=== PATIENT | male | born 1960 | race Caucasian/White ===

== ENCOUNTER 2025-03-31 09:28 | Inpatient (IN) ==
--- NOTE | 2025-03-31 09:47 | Emergency Department Note ---
Impression & Plan Precordial chest pain, Elevated liver enzymes, Jaundice, Anemia, Suicidal ideation ED Provider Note NAME: WILL BARFIELD AGE: 64 SEX: M : 1960 ARRIVES VIA: Walk-In INFORMANT: [Patient] ED PROVIDER(S): [Oliver Sepulveda MD] CHIEF COMPLAINT: Chest pain HISTORY OF PRESENT ILLNESS: The patient is a 64-year-old male who presents to the ER with 1 hour of left chest pain. The pain does not radiate and came on while he was driving. He feels maybe a bit hot/sweaty with the pain but there has been no nausea, no pleuritic discomfort however, he does feel mildly short of breath. The patient has no diagnosed coronary disease. He states that he has not had recent travel, he has never had a PE or DVT. The patient did have pain similar to today over the last few months, it would come and go randomly and sometimes, he felt it into his neck. During my evaluation, the patient became tearful, he admitted that in addition to his chest pain today, he has been feeling suicidal for weeks. He is not sure why, it may be financial stress. The patient states that he has thoughts of harming himself daily and, has thought through multiple plans. He has never been hospitalized for depression. He is not on antidepressive medications. PMHx/PSHx/Social Hx: See Below PHYSICAL EXAM: GENERAL: Patient is in mild distress, tearful. HEENT: No acute trauma, normocephalic atraumatic, mucous membranes moist, no nasal congestion. NECK: No stridor, no adenopathy, no meningismus, trachea is midline. LUNGS: Clear to auscultation bilaterally, no wheeze, no rhonchi, breath sounds equal. HEART: Without murmurs gallops or rubs, regular rate and rhythm. Chest: Nontender chest wall. ABDOMEN: Soft, nontender, no peritonitis. EXTREMITIES: No cyanosis, full range of motion of all the joints without pain or difficulty. NEUROLOGIC: Oriented x 3, no acute motor or sensory deficits, no focal weakness. SKIN: Moderate jaundice, no diaphoresis. DIFFERENTIAL DIAGNOSIS: Musculoskeletal pain, PE, aortic dissection, anxiety, TX, among others. EMERGENCY DEPARTMENT PROCEDURES: MEDICAL DECISION MAKING: There is a mild leukocytosis, looking back at recent testing from [facility], his white count has been running a bit high lately. The patient was anemic however, this is a baseline finding looking back at previous testing. Platelet count was somewhat low, also a baseline finding. There was no coagulopathy. No renal failure or significant electrolyte abnormality. Bilirubin was high at 9.7, he has been running a high bilirubin looking back at previous testing. Patient has known liver disease. He is always jaundiced. There was no pancreatitis. The TSH was slightly high however, the T4 was normal. ECG showed a sinus rhythm, no ischemia. Cardiac enzyme testing x 2 was not consistent with acute cardiac injury. Chest x-ray did not show mediastinal widening, pneumonia or pneumothorax. Urinalysis did not show findings of infection. Urine tox was negative. Aspirin, Tylenol and alcohol levels were undetectable. COVID test was negative. The patient's cardiac workup is unrevealing. He has chronic laboratory findings noted today, he was felt medically clear. The patient admits to feeling suicidal. He has thought through several plans. I did have the patient seen by psychiatry case management. Given the circumstances, a 302 petition was initiated. The appropriate paperwork was completed and signed. Patient was seen by our psychiatry services, 3 S. He has been admitted to their floor involuntarily. During the patient's stay, he was cooperative, no behavioral issues. Patient did receive a 500 cc IV saline bolus during his ER stay. Prior/Outside records/notes reviewed: None ECG per my interpretation: Indication was chest pain. The ECG shows a sinus rhythm with a PAC. The rate is 71. There is no ST elevation, no PVCs. The QTc was 449. Continuous Cardiac Monitoring per my interpretation: An order was placed for continuous cardiac monitoring. The monitor shows a rate of 76 with normal sinus rhythm. Imaging/x-ray results per my interpretation: Chest x-ray does not show free air, pneumonia or mediastinal widening. Chronic Medical/Social conditions affecting care: Chronic jaundice secondary to liver disease. Care/Management discussed with: Psychiatry case management Level of care consideration(s): After review of the information above and other included data: --I believe the patient requires escalation of care to admission DISPOSITION: Admission involuntarily to psychiatry, 3 S. Past Med/Surg History Problem List (Updated 03/31/25 @ 18:20 by Oliver Sepulveda MD) Suicidal ideation (Acute) Anemia (Acute) Jaundice (Acute) Elevated liver enzymes (Acute) Precordial chest pain (Acute) Medical History Jaundice Social History Smoking Status: Former smoker Preferred Language: Korean Feels Safe at Home: No Gender Identity: Male Allergies Allergies Allergy/AdvReac Type Severity Reaction Status Date / Time No Known Allergies Allergy Unverified 03/31/25 13:44 Home Meds Home Medications Medication Instructions Recorded Confirmed allopurinol 300 mg tablet 150 mg PO QAM 03/31/25 03/31/25 Results & Data (ED) Vital Signs Vital Signs - 24 hr 03/31/25 09:28 03/31/25 09:53 03/31/25 10:13 Temperature 36.6 C Temperature Source Temporal Artery Scan Pulse Rate 79 60 Pulse Rate [Finger] Pulse Rate from SpO2 Sensor Respiratory Rate 18 Respiratory Effort / Characteristics Non-Labored Spontaneous Respiratory Depth Normal Blood Pressure 171/80 H Blood Pressure [Right Arm] Blood Pressure Mean 110 Blood Pressure Mean [Right Arm] Pulse Oximetry 98 Oxygen Delivery Method Room Air Sepsis Recent Fever Within 48 Hours No Sepsis New/Unexplained Change in Mental Status N/A Sepsis Action Taken by Nursing No Action Required 03/31/25 11:00 03/31/25 11:30 03/31/25 11:54 Temperature Temperature Source Pulse Rate 62 61 59 L Pulse Rate [Finger] Pulse Rate from SpO2 Sensor 62 59 L Respiratory Rate 21 21 18 Respiratory Effort / Characteristics Respiratory Depth Blood Pressure 122/101 H 129/55 L Blood Pressure [Right Arm] Blood Pressure Mean 108 95 Blood Pressure Mean [Right Arm] Pulse Oximetry 99 100 99 Oxygen Delivery Method Room Air Room Air Room Air Sepsis Recent Fever Within 48 Hours Sepsis New/Unexplained Change in Mental Status Sepsis Action Taken by Nursing 03/31/25 12:00 03/31/25 15:20 03/31/25 17:13 Temperature Temperature Source Pulse Rate Pulse Rate [Finger] 67 Pulse Rate from SpO2 Sensor Respiratory Rate 18 Respiratory Effort / Characteristics Respiratory Depth Blood Pressure 109/46 L Blood Pressure [Right Arm] 119/64 Blood Pressure Mean 69 Blood Pressure Mean [Right Arm] 82 Pulse Oximetry 98 Oxygen Delivery Method Room Air Room Air Sepsis Recent Fever Within 48 Hours Sepsis New/Unexplained Change in Mental Status Sepsis Action Taken by [facility] Medications Current Medication List: was personally reviewed by me Laboratory Data Attestation: I reviewed the patient's lab results. 03/31/25 09:41 03/31/25 09:41 Lab Results 03/31/25 03/31/25 03/31/25 Range/Units 09:41 10:13 11:10 WBC 12.52 H (4.8-10.8) K/ul RBC 3.12 L (4.70-6.10) M/uL Hgb 10.3 L (14.0-18.0) g/dl Hct 29.4 L (42.0-52.0) % MCV 94.2 (80.0-100.0) fL MCH 33.0 (25.0-34.0) pg MCHC 35.0 (32.0-36.0) g/dL RDW Std Deviation 62.8 H (36.4-46.3) fL RDW Coeff of [place] 19.1 H (11.5-14.5) % Plt Count 119 L (130-400) K/uL MPV 10.5 (9.4-12.4) fL Immature Gran % (Auto) 0.7 % Neut % (Auto) 76.9 % Lymph % (Auto) 14.2 % [place] % (Auto) 6.2 % Eos % (Auto) 1.4 % Baso % (Auto) 0.6 % Neut # (Auto) 9.63 H (1.40-6.50) K/uL Lymph # (Auto) 1.78 (1.20-3.40) K/uL [place] # (Auto) 0.77 H (0.11-0.59) K/uL Eos # (Auto) 0.18 (0.00-0.50) K/uL Baso # (Auto) 0.07 (0.00-0.20) K/uL Immature Gran # (Auto) 0.09 (0.01-0.20) K/uL PT 11.9 (9.0-12.0) Seconds INR 1.1 (0.9-1.1) APTT 26 (21-31) Seconds PTT Ratio 1.0 Sodium 138 (136-145) mmol/L Potassium 4.2 (3.5-5.1) mmol/L Chloride 103 (98-107) mmol/L Carbon Dioxide 27 (21-32) mmol/L Anion Gap 8 (3-11) BUN 22 (6-23) mg/dl Creatinine 1.29 (0.6-1.4) mg/dl Est Cr Clr Drug Dosing Not Reportable eGFR 61.15 BUN/Creatinine Ratio 17.1 (10-20) Glucose 129 H (70-99(Fasting)) mg/dl Calcium 9.7 (8.6-10.3) mg/dl Magnesium 2.0 (1.7-2.4) mg/dl Total Bilirubin 9.7 H (0.2-1.0) mg/dl AST 22 (13-39) U/L ALT 13 (7-52) U/L Alkaline Phosphatase 61 (34-104) U/L Troponin I High Sens 6.1 (0-20) pg/ml Total Protein 7.7 (6.0-8.3) gm/dl Albumin 4.6 (3.4-5.0) gm/dl Globulin 3.1 (2.5-4.0) gm/dl Albumin/Globulin Ratio 1.5 (0.9-2) Lipase 39 (11-82) U/L TSH 4.689 H (0.300-4.500) uIu/ml Free T4 0.79 (0.61-1.60) ng/dl Urine Color Yellow Urine Appearance Clear (Clear) Urine pH 7.5 (4.5-7.5) Ur Specific [place] 1.013 (1.000-1.030) Urine Protein Negative (Negative) Urine Glucose (UA) Negative (Negative) Urine Ketones Negative (Negative) Urine Blood Negative (Negative) Urine Nitrite Negative (Negative) Urine Bilirubin Negative (Negative) Urine Urobilinogen Negative (Negative) Ur Leukocyte Esterase Negative (Negative) Urine Comment Salicylates < 3.0 L (3.0-30) mg/dl Urine Opiates Screen Neg (Neg) Ur Methadone, Qual Neg (Neg) Urine Fentanyl Screen Neg (Neg) Acetaminophen < 3 L (10-30) ug/ml Urine Barbiturates Neg (Neg) Ur Phencyclidine (PCP) Neg (Neg) U Amphetamin/Meth Scrn Neg (Neg) MDMA (Ecstasy) Screen Neg (Neg) U Benzodiazepines Scrn Neg (Neg) Ur Cocaine Metabolite Neg (Neg) U Marijuana (THC) Screen Neg (Neg) Ethyl Alcohol mg/dL < 10.0 (<10.0) mg/dl SARS-CoV-2 (PCR) (Negative) 03/31/25 03/31/25 Range/Units 11:48 14:13 WBC (4.8-10.8) K/ul RBC (4.70-6.10) M/uL Hgb (14.0-18.0) g/dl Hct (42.0-52.0) % MCV (80.0-100.0) fL MCH (25.0-34.0) pg MCHC (32.0-36.0) g/dL RDW Std Deviation (36.4-46.3) fL RDW Coeff of [place] (11.5-14.5) % Plt Count (130-400) K/uL MPV (9.4-12.4) fL Immature Gran % (Auto) % Neut % (Auto) % Lymph % (Auto) % [place] % (Auto) % Eos % (Auto) % Baso % (Auto) % Neut # (Auto) (1.40-6.50) K/uL Lymph # (Auto) (1.20-3.40) K/uL [place] # (Auto) (0.11-0.59) K/uL Eos # (Auto) (0.00-0.50) K/uL Baso # (Auto) (0.00-0.20) K/uL Immature Gran # (Auto) (0.01-0.20) K/uL PT (9.0-12.0) Seconds INR (0.9-1.1) APTT (21-31) Seconds PTT Ratio Sodium (136-145) mmol/L Potassium (3.5-5.1) mmol/L Chloride (98-107) mmol/L Carbon Dioxide (21-32) mmol/L Anion Gap (3-11) BUN (6-23) mg/dl Creatinine (0.6-1.4) mg/dl Est Cr Clr Drug Dosing eGFR BUN/Creatinine Ratio (10-20) Glucose (70-99(Fasting)) mg/dl Calcium (8.6-10.3) mg/dl Magnesium (1.7-2.4) mg/dl Total Bilirubin (0.2-1.0) mg/dl AST (13-39) U/L ALT (7-52) U/L Alkaline Phosphatase (34-104) U/L Troponin I High Sens 6.7 (0-20) pg/ml Total Protein (6.0-8.3) gm/dl Albumin (3.4-5.0) gm/dl Globulin (2.5-4.0) gm/dl Albumin/Globulin Ratio (0.9-2) Lipase (11-82) U/L TSH (0.300-4.500) uIu/ml Free T4 (0.61-1.60) ng/dl Urine Color Urine Appearance (Clear) Urine pH (4.5-7.5) Ur Specific [place] (1.000-1.030) Urine Protein (Negative) Urine Glucose (UA) (Negative) Urine Ketones (Negative) Urine Blood (Negative) Urine Nitrite (Negative) Urine Bilirubin (Negative) Urine Urobilinogen (Negative) Ur Leukocyte Esterase (Negative) Urine Comment Salicylates (3.0-30) mg/dl Urine Opiates Screen (Neg) Ur Methadone, Qual (Neg) Urine Fentanyl Screen (Neg) Acetaminophen (10-30) ug/ml Urine Barbiturates (Neg) Ur Phencyclidine (PCP) (Neg) U Amphetamin/Meth Scrn (Neg) MDMA (Ecstasy) Screen (Neg) U Benzodiazepines Scrn (Neg) Ur Cocaine Metabolite (Neg) U Marijuana (THC) Screen (Neg) Ethyl Alcohol mg/dL (<10.0) mg/dl SARS-CoV-2 (PCR) NEGATIVE (Negative) Administered Medications Discontinued Medications Sodium Chloride (Nss) 500 mls @ 999 mls/hr IV .Q31M ONE Stop: 03/31/25 10:11 Last Infusion: 03/31/25 11:19 Dose: Infused Documented By: Admin: 03/31/25 10:10 Dose: 999 mls/hr Documented By: DEBO Imaging Data Radiologist's Impression: Chest X-Ray 03/31/25 09:33 XR chest 1V portable CLINICAL HISTORY: Chest pain, nonspecific COMPARISON STUDY: None FINDINGS: There is mild cardiomegaly without pulmonary vascular congestion. No consolidation or pleural effusion. No pneumothorax. IMPRESSION: No acute findings. ACT 112: Negative or not required by law. Electronically signed by: Sheldon Plummer M.D. 03/31/2025 10:13 AM Discharge Plan Visit Data Chief Complaint: Chest Pain Stated Complaint: chest pains, trouble breathing ED Provider: Oliver Sepulveda Discharge Problem: Precordial chest pain, Elevated liver enzymes, Jaundice, Anemia, Suicidal ideation Patient Disposition: Admitted As Inpatient Condition: Good Discharge Instructions Interventions: ED Discharge Assessment Last Done: 03/31/25 17:13 Discharge Problem: Anemia Qualifiers: Anemia type: unspecified type Qualified Code(s): D64.9 - Anemia, unspecified
[2025-03-31 09:58] LABS: Hematocrit (blood only) 29.4 % (42.0-52.0); Hemoglobin 10.3 g/dl (14.0-18.0); Immature Granulocytes # (auto) 0.09 K/uL (0.01-0.20); Immature Granulocytes % (auto) 0.7 %; Mean Corpuscular Hemoglobin 33.0 pg (25.0-34.0); Mean Corpuscular Volume 94.2 fL (80.0-100.0); Platelet Count 119 K/uL (130-400); RDW Standard Deviation 62.8 fL (36.4-46.3); Red Blood Count 3.12 M/uL (4.70-6.10); White Blood Count 12.52 K/ul (4.8-10.8)
[2025-03-31] MEDS: SODIUM CHLORIDE 0.9% 500 ML IV ONE (10:10)
--- NOTE | 2025-03-31 10:14 | XRay Report ---
XR chest 1V portable CLINICAL HISTORY: Chest pain, nonspecific COMPARISON STUDY: None FINDINGS: There is mild cardiomegaly without pulmonary vascular congestion. No consolidation or pleur al effusion. No pneumothorax. IMPRESSION: No acute findings. ACT 112: Negative or not required by law. Electronically signed by: Sheldon Plummer M.D. 03/31/2025 10:13 AM
[2025-03-31 10:17] LABS: Alanine Aminotransferase 13 U/L (7-52); Albumin Globulin Ratio 1.5 (0.9-2); Alkaline Phosphatase 61 U/L (34-104); Anion Gap 8 (3-11); Bilirubin,Total 9.7 mg/dl (0.2-1.0); Blood Urea Nitrogen 22 mg/dl (6-23); Calcium 9.7 mg/dl (8.6-10.3); Carbon Dioxide 27 mmol/L (21-32); Chloride 103 mmol/L (98-107); Globulin 3.1 gm/dl (2.5-4.0); Glucose 129 mg/dl (70-99(Fasting)); Lipase 39 U/L (11-82); Magnesium 2.0 mg/dl (1.7-2.4); Potassium 4.2 mmol/L (3.5-5.1); Sodium 138 mmol/L (136-145); Total Protein 7.7 gm/dl (6.0-8.3)
[2025-03-31 10:20] LABS: Acetaminophen < 3 ug/ml (10-30); Salicylate < 3.0 mg/dl (3.0-30)
[2025-03-31 10:32] LABS: Thyroid Stimulating Hormone 4.689 uIu/ml (0.300-4.500)
[2025-03-31 10:33] LABS: INR 1.1 (0.9-1.1); Partial Thromboplastin Time 26 Seconds (21-31); Prothrombin Time 11.9 Seconds (9.0-12.0)
[2025-03-31 11:32] LABS: Appearance Urine Clear (Clear); Glucose Urine UA Negative (Negative)
[2025-03-31 12:00] LABS: Amphetamines+Metham, Urine Neg (Neg); MDMA (Ecstacy), Urine Neg (Neg); Marijuana, Urine Neg (Neg)
[2025-03-31] MEDS ORDERED: ACETAMINOPHEN 325 MG TAB PO PRN (17:53)
[2025-03-31] MEDS ORDERED: MAGNESIUM HYDROXIDE SUSP 30 ML UDC PO PRN (17:53)
[2025-03-31] MEDS ORDERED: SODIUM CHLORIDE 0.65% NA SOLN 45 ML (OCEAN) PRN (17:53)
[2025-03-31] MEDS ORDERED: ALUMINUM/MAGNESIUM SUSP 30 ML UDC PO PRN (17:53)
[2025-03-31] MEDS ORDERED: BISMUTH SUBSALICYLATE 262 MG CHEW PO PRN (17:53)
[2025-03-31] MEDS ORDERED: LORazepam 0.5 MG TAB PO PRN (17:56)
--- NOTE | 2025-04-01 15:00 | History & Physical ---
Date of Service April 01, 2025 Impression / Recommendations Impression FACUNDO BARFIELD is a 64-year-old M who currently lives with , has no past psychiatric history, Gilbert's syndrome, gout, and was admitted on 03/31/25 17:21 on a 302 voluntary commitment for suicidal ideation. Commitment expires 04/05/25 at 1:14pm. Differential includes BARRERA with panic attacks (given frequency, quality of ruminations, stressors, and timeline) vs MDD (less likely due to denial of global depression symptoms) vs Adjustment disorder (marital conflicts, isolation, finances). Patient initially presented with CP associated with anxiety and complaints of SI with plan. Pt currently denies SI, denies having a plan, denies past suicide attempt. Pt is future oriented, and presents intact reality testing. Pt was counseled about benefits of medications and psychotherapy for his anxiety and mood; however remains apprehensive and goal directed to returning to work and his family. Would not sign ROIs so we can gather collateral from family. Overall, I spent a total of 70 minutes with this case including review of chart records, nursing report, review of lab work, direct evaluation of the patient at bedside, counseling the patient, multidisciplinary team meeting, orders, and documentation in the electronic health record. (1) Generalized anxiety disorder with panic attacks: (2) Jaundice: (3) Elevated liver enzymes: Plan 04/01/25:The patient was admitted to the [facility] ([facility]) on q15 min checks (behavioral with suicide precautions) for safety. The patient will participate in group, recreational, and milieu therapies and will be offered additional individual and family sessions as clinically appropriate. Labs: Vit D, B12, A1C, Lipid panel Inventory Assets Strengths: employment, family support Needs: outpatient connection, insight into condition Suicide Risk Level Suicide Risk Level: Moderate (q15 min suicide checks) Risk Factors Assessment Male: Yes : Yes Do You Have Access To A Gun?: No (Pt. indicated no access to firearms.) Health Problems: Yes Mental Health Diagnoses: No Substance Use Disorders: No Previous Attempt: No Family History of Suicide: No Previous Psychiatric Hospitalization: No Hopelessness: No Protective Factors Assessment Mormon Beliefs: Yes : Yes Responsible for Young Children: No Employed: Yes ([employer]) Stable Relationships: No Supportive Family: Yes Good Rapport with Provider: Yes Absence of Any Risk Factors Above: No Psychiatric History Identifying Data FACUNDO BARFIELD is a 64-year-old M who currently lives with , has no past psychiatric history, Gilbert's syndrome, gout, and was admitted on 03/31/25 17:21 on a 302 voluntary commitment for suicidal ideation. Commitment expires 04/05/25 at 1:14pm. Chief Complaint "Don't need to be here" History of Present Illness On interview patient appears guarded and is not forthcoming about most details. He reports once monthly panic attacks with chest pain, breathing difficulties, feeling nervous and started 3 to 4 years ago. Says that he is the sole provider for his and himself and needs to get back to work. Currently has a part- time job at [employer] and is worried they will fire him. C/o financial stressors and basic needs such as groceries have become too expensive. Says that when he came in he endorsed passive SI thoughts however denies active suicidal ideation or intention. Says that he wants to live for his . Patient is tearful at times through the interview. Says on the day of admission he went for a drive and was not feeling good and this led to increasing ruminations. Complains of stressors financial problems and that his does not love him. Reports sleeping well, fair appetite, good concentration, good energy, exercises frequently, denies SI, denies anhedonia. Unable to identify triggers to provoke anxious ruminations. Says that he misses his dog. Denies past psychiatric history. Denies past suicide attempts. Denies past drug or alcohol problems. On marriage. Lives with . Adult children have moved out. Works part-time at [employer]. 03/31/25 11:36 - Case Management ED Psych by Chrissy Sutherland This CM met with Facundo at the request of Dr. Sepulveda. Facundo is polite but is very guarded and does not offer information even when this CM asks multiple times. Facundo is crying throughout this conversation. Facundo states that he has been suicidal for "quite some time" and admits to having multiple plans. Facundo refuses to elaborate so this CM asked Facundo if he has thoughts such as jumping off a building or wrecking his car to which his response was "yeah all of those." Facundo does not have access to guns. Facundo states that he has "given up" and does not think there is anything that will be able to prevent him from ending his life. Facundo has no MH hx, no dx, and is not on any medication for his MH. Facundo denies HI/SIB/AH/VH. Facundo states that he retired last year but has continued working ~2 days a week at [employer]. Facundo states that he has "a lot of problems that I can't fix." This CM asked for clarification and details but Facundo would not elaborate. Facundo is and denies having issues with his marriage but stated that this CM is not welcome to reach out to his partner. Facundo has no hx of IP tx and at this time is not interested in signing himself in for tx. 03/31/25 18:33 - Psychiatric Liason Note by Alana Hernandez RN Admission Note: Patient arrived to unit via wheelchair on a 302 @ 1720. Presents tearful, depressed, guarded, irritable and feels psychiatric inpatient treatment is unnecessary. Patient reported having suicidal thoughts, "for weeks" and declined to elaborate on these thoughts and ultimately could not safety plan. Patient remains guarded and irritable, evasive with assessment. He denies any ongoing/acute medical concerns; hx of Gilbert's Syndrome. No previous visits/records available to obtain additional history. Patient reports being , declines giving permission to speak with . Patient given several opportunities to gather personal phone numbers from cellphone, patient declined. Patient tearful at times, remains in room, denies any needs at this time. Q15min suicide precautions in place for safety. Past Psychiatric History Current Psychiatric Diagnosis: Unspecified Depressive Disorder Do You Have Access To A Gun?: No (Pt. indicated no access to firearms.) History of Previous Suicide Attempt: No Allergies Allergy/AdvReac Type Severity Reaction Status Date / Time No Known Allergies Allergy Unverified 03/31/25 13:44 Home Medications Medication Instructions Recorded Confirmed Type allopurinol 300 mg tablet 150 mg PO QAM 03/31/25 03/31/25 History Family History Family History of: Refuses To Discuss Family Mental Health History Comment: pt unable to answer Alcohol History Hx of Alcohol Use Over the Past 12 Months: No Smoking Use Have You Smoked or Used Tobacco Products in the Last 30 Days: No tobacco type: cigarettes Smoking Status: Former smoker Substance History Hx of Prescription Med Misuse Over the Past 12 Months: No Hx of Over the Counter Med Misuse Over the Past 12 Months: No Hx of Inhalent Misuse Over the Past 12 Months: No Hx of Organic Substance Use Over the Past 12 Months: No Hx of Illegal Substances/Street Drug Use Over Past 12 Months: No Problems as a Result of Past Substance Use: None Identified Personal History Living Arrangements: Home Highest Grade Completed: High School Graduate Marital Status: Number Of Children: 3 Beliefs That Will Affect Care: None Patient History Medical History Jaundice Social History Smoking Status: Former smoker Preferred Language: Maltese Communication Ability: Effective Museum Director Required: No Beliefs That Will Affect Care: None Feels Safe at Home: Yes Gender Identity: Male Assistive Devices: Glasses Physical Exam Mental Examination: Appearance: Well Groomed Eye Contact: Avoids Eye Contact Motor Behavior: Slowed Speech: Soft and Nonverbal Mood: Sad and Tearful Affect: Irritable, Nervous and Withdrawn Thought Process: Intact and Slowed Thinking Thought Content: Racing Hallucinations: None Insight: Poor Judgement: Poor Vital Signs (Past 24 Hours): Last Vital Signs Temp 36.6 C 04/01/25 06:25 Pulse 63 04/01/25 06:26 Resp 16 04/01/25 06:25 BP 100/55 L 04/01/25 06:26 Pulse Ox 95 04/01/25 06:25 O2 Del Method Room Air 04/01/25 06:25 Exam Statement: A physical exam was performed in the ED for the purposes of medical clearance. I accept that physical as correct and adequate for the purposes of the inpatient physical exam. Results & Data ([facility]) Laboratory Results Laboratory Results - last 24 hr 03/31/25 14:13 SARS-CoV-2 (PCR) NEGATIVE Current Inpatient Medications Current Inpatient Medications: Current Inpatient Medications Acetaminophen (Acetaminophen 325 Mg Tab) 650 mg PO Q4H PRN PRN Reason: Headache or Minor Fever Stop: 04/30/25 17:52 Al Hydrox/Mg Hydrox/Simethicone (Aluminum/Magnesium Susp 30 Ml Udc) 30 ml PO Q4H PRN PRN Reason: GI Upset Stop: 04/30/25 17:52 Bismuth Subsalicylate (Bismuth Subsalicylate 262 Mg Chew) 2 tab PO Q30M PRN PRN Reason: Loose Stool/Diarrhea Stop: 04/30/25 17:52 Hydroxyzine HCl (Hydroxyzine Hcl 25 Mg Tab) 50 mg PO HSZ PRN PRN Reason: Insomnia Stop: 04/30/25 17:52 Hydroxyzine HCl (Hydroxyzine Hcl 25 Mg Tab) 25 mg PO Q4H PRN PRN Reason: Anxiety Stop: 04/30/25 17:52 Lorazepam (Lorazepam 0.5 Mg Tab) 0.5 mg PO TID PRN PRN Reason: Agitation Stop: 04/30/25 17:55 Magnesium Hydroxide (Magnesium Hydroxide Susp 30 Ml Udc) 30 ml PO DAILY PRN PRN Reason: Constipation Stop: 04/30/25 17:52 Sodium Chloride (Sodium Chloride 0.65% Na Soln 45 Ml ([place])) 1 - 2 sprays NA PRN PRN PRN Reason: Nasal Dryness/Congestion Stop: 04/30/25 17:52
--- NOTE | 2025-04-02 05:38 | Electrocardiogram Report ---
Test Reason : Blood Pressure : */* mmHG Vent. Rate : 71 BPM Atrial Rate : 71 BPM P-R Int : 112 ms QRS Dur : 88 ms QT Int : 414 ms P-R-T Axes : 43 -23 42 degrees QTcB Int : 449 ms Sinus rhythm with Premature supraventricular complexes Otherwise normal ECG No previous ECGs available Confirmed by Last Wong ([id number]) on 04/02/2025 5:38:07 AM Referred By: REFERRED SELF Confirmed By: Last Wong
[2025-04-02 09:36] LABS: HDL Cholesterol 38.0 mg/dl; Triglycerides 130.0 mg/dl (0-150)
[2025-04-02 09:52] LABS: Cholesterol 86.0 mg/dl (0-200)
--- NOTE | 2025-04-02 11:22 | Discharge Summary ---
Date of Service April 02, 2025 History of Present Illness On interview patient appears guarded and is not forthcoming about most details. He reports once monthly panic attacks with chest pain, breathing difficulties, feeling nervous and started 3 to 4 years ago. Says that he is the sole provider for his and himself and needs to get back to work. Currently has a part- time job at [email or web address] and is worried they will fire him. C/o financial stressors and basic needs such as groceries have become too expensive. Says that when he came in he endorsed passive SI thoughts however denies active suicidal ideation or intention. Says that he wants to live for his . Patient is tearful at times through the interview. Says on the day of admission he went for a drive and was not feeling good and this led to increasing ruminations. Complains of stressors financial problems and that his does not love him. Reports sleeping well, fair appetite, good concentration, good energy, exercises frequently, denies SI, denies anhedonia. Unable to identify triggers to provoke anxious ruminations. Says that he misses his dog. Denies past psychiatric history. Denies past suicide attempts. Denies past drug or alcohol problems. On marriage. Lives with . Adult children have moved out. Works part-time at [employer]. 03/31/25 11:36 - Case Management ED Psych by Chrissy Sutherland This CM met with Facundo at the request of Dr. Sepulveda. Facundo is polite but is very guarded and does not offer information even when this CM asks multiple times. Facundo is crying throughout this conversation. Facundo states that he has been suicidal for "quite some time" and admits to having multiple plans. Facundo refuses to elaborate so this CM asked Facundo if he has thoughts such as jumping off a building or wrecking his car to which his response was "yeah all of those." Facundo does not have access to guns. Facundo states that he has "given up" and does not think there is anything that will be able to prevent him from ending his life. Facundo has no MH hx, no dx, and is not on any medication for his MH. Facundo denies HI/SIB/AH/VH. Facundo states that he retired last year but has continued working ~2 days a week at [employer]. Facundo states that he has "a lot of problems that I can't fix." This CM asked for clarification and details but Facundo would not elaborate. Facundo is and denies having issues with his marriage but stated that this CM is not welcome to reach out to his partner. Facundo has no hx of IP tx and at this time is not interested in signing himself in for tx. 03/31/25 18:33 - Psychiatric Liason Note by Alana Hernandez RN Admission Note: Patient arrived to unit via wheelchair on a 302 @ 1720. Presents tearful, depressed, guarded, irritable and feels psychiatric inpatient treatment is unnecessary. Patient reported having suicidal thoughts, "for weeks" and declined to elaborate on these thoughts and ultimately could not safety plan. Patient remains guarded and irritable, evasive with assessment. He denies any ongoing/acute medical concerns; hx of Gilbert's Syndrome. No previous visits/records available to obtain additional history. Patient reports being , declines giving permission to speak with . Patient given several opportunities to gather personal phone numbers from cellphone, patient declined. Patient tearful at times, remains in room, denies any needs at this time. Q15min suicide precautions in place for safety. Physical Exam Mental Examination Appearance: Well Groomed Eye Contact: Sporadic Contact Motor Behavior: Slowed Speech: Soft and Nonverbal Mood: Sad Affect: Nervous and Withdrawn Thought Process: Intact Thought Content: Racing Hallucinations: None Insight: Poor (to limited) Judgement: Fair (to limited) Vital Signs (Past 24 Hours) Last Vital Signs Temp 36 C L 04/02/25 08:28 Pulse 63 04/02/25 08:28 Resp 18 04/02/25 08:28 BP 99/58 L 04/02/25 08:28 Pulse Ox 95 04/02/25 08:28 O2 Del Method Room Air 04/01/25 06:25 Principal Diagnosis Generalized anxiety disorder with panic attacks Psychiatric Data See daily stay summary. In short, safety was maintained and the patient was coop erative with care. Pt denied active suicidal ideation upon admission and reports months long history of passive SI. He presented with a tearful affect, sad mood, anxious ruminations. He presented once monthly panic attacks as a result of increasing anxious ruminations. He denied offer for medication trials to assist with his mental health symptoms and was agreeable to outpatient therapy. H/o Gilbert's syndrome and Gout He presented stable sleep, appetite on the unit. He was isolative to his room citing he is not a social person. He denied active SI on multiple visits, denied SI plan, denied past suicide attempt, presented multiple future plans including returning to work, taking care of his . He presented intact reality verbalizing how his family would be affected by his . Was determined to not be an imminent risk of harm to himself. He was educated about his condition and how to seek further help if he changes his mind about treatment. A family session was refused and safety plan was completed prior to discharge. Day of Discharge Assessment Today the patient voices readiness for discharge. They note improvement in mood and deny thoughts to harm self or others. Thoughts remain organized and they are improved from admission. There is no evidence of psychosis. They agree to take mediations as prescribed and keep follow-up appointments. They are stable for discharge to outpatient level of care. Overall, I spent a total of 40 minutes with this case including review of chart records, nursing report, review of lab work, direct evaluation of the patient at bedside, counseling the patient, [multidisciplinary team meeting, orders,][discussion of the patient with the hospitalist provider, discussion with the psychiatric liaison during clinical rounds,] and documentation in the electronic health record. Transition of Care Transition Of Care Record: was reviewed with the patient Advance Directives Advance Directives Information Provided: Yes Advance Directives: No Mental Health Advance Directive: No Advance Directives on File: No Living Will: No Power of Slicing Machine Operator: No Advance Directives Reason:: Declines as Mental Health Visit. Risk Factors Assessment Male: Yes : Yes Do You Have Access To A Gun?: No (Pt. indicated no access to firearms.) Health Problems: Yes Mental Health Diagnoses: No Substance Use Disorders: No Previous Attempt: No Family History of Suicide: No Previous Psychiatric Hospitalization: No Hopelessness: No Protective Factors Assessment Tenriism Beliefs: Yes : Yes Responsible for Young Children: No Employed: Yes ([employer]) Stable Relationships: No Supportive Family: Yes Good Rapport with Provider: Yes Absence of Any Risk Factors Above: No Discharge Data Lab Results 03/31/25 03/31/25 03/31/25 09:41 10:13 11:10 WBC 12.52 H RBC 3.12 L Hgb 10.3 L Hct 29.4 L MCV 94.2 MCH 33.0 MCHC 35.0 RDW Std Deviation 62.8 H RDW Coeff of Ninoska 19.1 H Plt Count 119 L MPV 10.5 Immature Gran % (Auto) 0.7 Neut % (Auto) 76.9 Lymph % (Auto) 14.2 Grayson % (Auto) 6.2 Eos % (Auto) 1.4 Baso % (Auto) 0.6 Neut # (Auto) 9.63 H Lymph # (Auto) 1.78 Grayson # (Auto) 0.77 H Eos # (Auto) 0.18 Baso # (Auto) 0.07 Immature Gran # (Auto) 0.09 PT 11.9 INR 1.1 APTT 26 PTT Ratio 1.0 Sodium 138 Potassium 4.2 Chloride 103 Carbon Dioxide 27 Anion Gap 8 BUN 22 Creatinine 1.29 Est Cr Clr Drug Dosing Not Reportable eGFR 61.15 BUN/Creatinine Ratio 17.1 Glucose 129 H Calcium 9.7 Magnesium 2.0 Total Bilirubin 9.7 H AST 22 ALT 13 Alkaline Phosphatase 61 Troponin I High Sens 6.1 Total Protein 7.7 Albumin 4.6 Globulin 3.1 Albumin/Globulin Ratio 1.5 Triglycerides Cholesterol LDL Cholesterol, Calc VLDL Cholesterol, Calc HDL Cholesterol Cholesterol/HDL Ratio Lipase 39 Vitamin B12 25-OH Vitamin D Total TSH 4.689 H Free T4 0.79 Urine Color Yellow Urine Appearance Clear Urine pH 7.5 Ur Specific Rogerson 1.013 Urine Protein Negative Urine Glucose (UA) Negative Urine Ketones Negative Urine Blood Negative Urine Nitrite Negative Urine Bilirubin Negative Urine Urobilinogen Negative Ur Leukocyte Esterase Negative Urine Comment Salicylates < 3.0 L Urine Opiates Screen Neg Ur Methadone, Qual Neg Urine Fentanyl Screen Neg Acetaminophen < 3 L Urine Barbiturates Neg Ur Phencyclidine (PCP) Neg U Amphetamin/Meth Scrn Neg MDMA (Ecstasy) Screen Neg U Benzodiazepines Scrn Neg Ur Cocaine Metabolite Neg U Marijuana (THC) Screen Neg Ethyl Alcohol mg/dL < 10.0 SARS-CoV-2 (PCR) 03/31/25 03/31/25 04/02/25 11:48 14:13 08:33 WBC RBC Hgb Hct MCV MCH MCHC RDW Std Deviation RDW Coeff of Ninoska Plt Count MPV Immature Gran % (Auto) Neut % (Auto) Lymph % (Auto) Grayson % (Auto) Eos % (Auto) Baso % (Auto) Neut # (Auto) Lymph # (Auto) Grayson # (Auto) Eos # (Auto) Baso # (Auto) Immature Gran # (Auto) PT INR APTT PTT Ratio Sodium Potassium Chloride Carbon Dioxide Anion Gap BUN Creatinine Est Cr Clr Drug Dosing eGFR BUN/Creatinine Ratio Glucose Calcium Magnesium Total Bilirubin AST ALT Alkaline Phosphatase Troponin I High Sens 6.7 Total Protein Albumin Globulin Albumin/Globulin Ratio Triglycerides 130 Cholesterol 86 LDL Cholesterol, Calc 22 VLDL Cholesterol, Calc 26 HDL Cholesterol 38 Cholesterol/HDL Ratio 2.3 Lipase Vitamin B12 857 25-OH Vitamin D Total 36.4 TSH Free T4 Urine Color Urine Appearance Urine pH Ur Specific Rogerson Urine Protein Urine Glucose (UA) Urine Ketones Urine Blood Urine Nitrite Urine Bilirubin Urine Urobilinogen Ur Leukocyte Esterase Urine Comment Salicylates Urine Opiates Screen Ur Methadone, Qual Urine Fentanyl Screen Acetaminophen Urine Barbiturates Ur Phencyclidine (PCP) U Amphetamin/Meth Scrn MDMA (Ecstasy) Screen U Benzodiazepines Scrn Ur Cocaine Metabolite U Marijuana (THC) Screen Ethyl Alcohol mg/dL SARS-CoV-2 (PCR) NEGATIVE Hospital Course (1) Generalized anxiety disorder with panic attacks: (2) Jaundice: (3) Elevated liver enzymes: Plan 04/01/25:[facility]) on q15 min checks (behavioral with suicide precautions) for safety. The patient will participate in group, recreational, and milieu therapies and will be offered additional individual and family sessions as clinically appropriate. Labs: Vit D, B12, A1C, Lipid panel Mental Health & Subst Abuse Tx Psychiatrist Name of Psychiatrist: Not needed Therapist Name of Therapist: [facility] Therapist Radha Therapist's Date of Therapist Appointment: 04/06/25 Time of Therapist Appointment: 1:30PM Therapy Appointment Comment: Virtual via [email or web address] Therapist Release of Information: Obtained, Reviewed and Signed Head Turning Machine Operator Name of Head Turning Machine Operator: none Post Discharge Appointments Primary Care Physician Name Of Family Doctor/PCP: Dr. Wilson - [facility] Release of Information: Obtained, Reviewed and Signed Contact Information Discharge Discharge Address: [address] [place] [id number] Discharge Plan Discharge Items Patient Disposition: Hospice - Medical Facility Reason For Visit: UNSPECIFIED DEPRESSIVE DISORDER Discharge Diagnosis: Generalized anxiety disorder with panic attacks Condition on Discharge: Good Activity: Resume your previous activity Non-emergency contact: Primary Care Provider, Psychiatrist and Therapist Call non-emergency contact if: you have any medication questions and your symptoms worsen Follow-up/Referrals: Ramiro Wilson MD [Primary Care Provider] - Diet: Regular Addtl Attending Provider Instructions: -Engage in therapy. Discuss your needs, concerns, worries. Set goals with your therapist you they can keep you on track. -If anxiety symptoms persist or worsen (especially panic attacks), consider starting medication with your primary care doctor Pending Studies at Discharge: No Stand-Alone Forms: My [facility] [employer] Skilled Items Patient informed of condition?: Yes DNR: No Discharge Level of Care: Other Communicable Disease: No Discharge Prognosis: Stable Lines: None Urinary Catheter: No Medications and DC Order Prescriptions: Continued allopurinol 300 mg tablet 150 mg PO QAM Discharge Orders: Discharge Order (Routine); Ordered 04/02/25 Ordered By: Froilan Henley Admission Data Admit Date/Time: 03/31/25 17:21 Attending Provider: Froilan Henley Admit Provider: Adrienne Sanchez Primary Care Provider: Ramiro Wilson Other Interventions: Discharge Summary Assessment (RN) Last Done: 04/02/25 08:28 Coding [place] [address] D/C day mgmt > 30 min Patient Type Established History Detailed Exam Detailed Medical Decision Making Moderate Complexity Diagnoses Generalized anxiety disorder with panic attacks F41.1; F41.0 Jaundice R17 Elevated liver enzymes R74.8
== END 2025-04-02 12:00 | disposition home or self-care (01) | DRG 880 ==
LOC: ED 09:28 → 3S 17:13